=== PATIENT | female | born 1950 | race Two or more races ===

== ENCOUNTER → 2021-01-04 | Emergency (ER) | payer OTHER ==
[~2021-01-04] VITALS: Ht 162.6 cm; Wt 52.6 kg
[~2021-01-04] MED LIST: CALCIUM CITRATE; SYNTHROID112 MCG
== END | disposition left against medical advice (07) ==
LOC: ER 20:52
DX: T78.40XA Allergy, unspecified, initial encounter (principal); Z53.21 Procedure and treatment not carried out due to patient leaving prior to being seen by health care provider

== ENCOUNTER 2021-10-13 12:25 | Emergency (ER) | payer OTHER ==
[~2021-10-13] VITALS: Ht 162.6 cm; Wt 45.4 kg
== END 2021-10-13 18:50 | disposition home or self-care (01) ==
LOC: ER 12:25
DX: E83.51 Hypocalcemia (principal)